=== PATIENT | female | born 2000 | race Caucasian/White ===

== ENCOUNTER 2021-01-10 22:13 | Inpatient (IN) | payer OTHER ==
[~2021-01-10] VITALS: Ht 160 cm; Wt 58.1 kg
[2021-01-10 23:12] LABS: MICROSCOPIC INDICATED
[2021-01-10 23:19] LABS: BASOPHILS % (AUTO) 1 % (0-1); EOSINOPHILS % (AUTO) 0 % (1-7); LYMPHOCYTES % (AUTO) 13 % (22-44); MEAN CORPUSCULAR HEMOGLOBIN 31.5 pg (27.0-34.8); MEAN CORPUSCULAR HGB CONC 34.3 g/dL (32.4-35.8); MEAN PLATELET VOLUME 8.3 fL (7.4-10.4); MONOCYTES % (AUTO) 6 % (2-9); NEUTROPHILS % (AUTO) 79 % (42-75); PLATELET COUNT 319 x10^3/uL (130-400); RED BLOOD COUNT 4.25 x10^6/uL (3.82-5.3)
[2021-01-10 23:28] LABS: ALBUMIN 3.5 g/dL (3.4-5.0); ANION GAP 7 mmol/L (5-15); CALCIUM 8.8 mg/dL (8.5-10.1); CHLORIDE 110 mmol/L (98-107); CREATININE 0.65 mg/dL (0.55-1.02)
--- NOTE | 2021-01-10 23:37 | NUR ---
PT AMBULATED STEADY FROM LOBBY TO ROOM
[2021-01-11] MEDS ORDERED: MORPHINE SULFATE 4 MG/ML, 1ML ONE (00:12)
[2021-01-11] MEDS ORDERED: KETOROLAC 30 MG/1 ML ONE ×2 (00:12→10:51)
[2021-01-11] MEDS ORDERED: ONDANSETRON 2MG/ML, 2ML ONE ×2 (00:12→11:18)
[2021-01-11] MEDS ORDERED: KETOROLAC 30 MG/1 ML IVPush ONE (00:30)
[2021-01-11] MEDS ORDERED: ONDANSETRON 2MG/ML, 2ML IVPush ONE (00:30)
[2021-01-11] MEDS ORDERED: MORPHINE SULFATE 4 MG/ML, 1ML IVPush PRN (00:30)
--- NOTE | 2021-01-11 01:32 | NUR ---
REPORT GIVEN TO MYRA TOURE. HOSP AT BEDSIDE
[2021-01-11] MEDS ORDERED: VENL75TA PO (01:35)
[2021-01-11 01:55] VITALS: BP 98/61
[2021-01-11] MEDS ORDERED: PROM25TA10 PO (01:55)
[2021-01-11] MEDS ORDERED: LACTATED RINGERS 1,000 ML IV SCH (02:00)
[2021-01-11] MEDS ORDERED: OXYcodone IR 5MG TABLET PO PRN (02:00)
[2021-01-11] MEDS ORDERED: MELATONIN 5 MG TABLET PO PRN (02:00)
[2021-01-11] MEDS ORDERED: LABETALOL 5MG/ML, 20ML IVPush PRN (02:00)
[2021-01-11] MEDS ORDERED: LORazepam 2 MG/ML, 1ML IVPush PRN (02:00)
[2021-01-11] MEDS ORDERED: POLYETHYLENE GLYCOL 17 GM PACKET PO PRN (02:00)
[2021-01-11] MEDS ORDERED: POTASSIUM CHLORIDE 20 MEQ TAB.ER.PRT PO ONE (02:00)
[2021-01-11] MEDS ORDERED: morphine SULFATE 10 MG/ML, 1ML IVPush PRN (02:00)
[2021-01-11] MEDS: KETOROLAC 30 MG/1 ML IV SCH ×4 (02:40→15:11)
[2021-01-11] MEDS: ACETAMINOPHEN 500 MG TABLET PO SCH ×4 (02:40→15:10)
[2021-01-11] MEDS: ONDANSETRON 2MG/ML, 2ML IVPush PRN ×2 (05:55→15:51)
[2021-01-11 06:31] LABS: BASOPHILS % (AUTO) 1 % (0-1); EOSINOPHILS % (AUTO) 1 % (1-7); LYMPHOCYTES % (AUTO) 28 % (22-44); MEAN CORPUSCULAR HEMOGLOBIN 31.2 pg (27.0-34.8); MEAN CORPUSCULAR HGB CONC 33.7 g/dL (32.4-35.8); MEAN PLATELET VOLUME 8.5 fL (7.4-10.4); MONOCYTES % (AUTO) 8 % (2-9); NEUTROPHILS % (AUTO) 62 % (42-75); PLATELET COUNT 262 x10^3/uL (130-400); RED BLOOD COUNT 3.83 x10^6/uL (3.82-5.3); RED CELL DISTRIBUTION WIDTH 12.6 % (9.6-15.2)
[2021-01-11 06:48] LABS: CHLORIDE 111 mmol/L (98-107)
[2021-01-11 07:01] LABS: ANION GAP 7 mmol/L (5-15); CALCIUM 8.6 mg/dL (8.5-10.1); CREATININE 0.46 mg/dL (0.55-1.02)
[2021-01-11 07:39] VITALS: BP 93/60
[2021-01-11] MEDS ORDERED: FAMOTIDINE 20 MG/2 ML IVPush SCH (09:00)
[2021-01-11] MEDS ORDERED: FENTANYL PF 250 MCG/5ML ONE (09:18)
[2021-01-11] MEDS ORDERED: MIDAZOLAM 1 MG/ML, 2ML ONE (09:18)
[2021-01-11] MEDS ORDERED: LABETALOL 5MG/ML, 20ML IV PRN (09:30)
[2021-01-11] MEDS ORDERED: DIPHENHYDRAMINE 50 MG/ML, 1ML IVPush PRN (09:30)
[2021-01-11] MEDS ORDERED: HALOPERIDOL 5 MG/ML IV PRN (09:30)
[2021-01-11] MEDS ORDERED: OXYcodone 5 MG/5 ML ORAL.SOL UDC PO PRN (09:30)
[2021-01-11] MEDS ORDERED: MEPERIDINE/PF 25MG/0.5ML IVPush PRN (09:30)
[2021-01-11] MEDS ORDERED: PROMETHAZINE 25 MG/ML, 1ML IVPush PRN (09:30)
[2021-01-11] MEDS ORDERED: HYDROmorphone 1 MG/ML, 1ML INJ IVPush PRN (09:30)
[2021-01-11] MEDS ORDERED: FENTANYL PF 100 MCG/2ML IV PRN (09:30)
[2021-01-11] MEDS ORDERED: hydrALAzine 20 MG/ML, 1ML IV PRN (09:30)
[2021-01-11] MEDS ORDERED: OMNIPAQUE 180 MG/ML, 20ML VIAL ONE (11:10)
[2021-01-11] MEDS ORDERED: NEOSTIGMINE 1 MG/ML, 10ML ONE (11:18)
[2021-01-11] MEDS ORDERED: SUCCINYLCHOLINE 20 MG/ML, 10ML ONE (11:18)
[2021-01-11] MEDS ORDERED: DEXAMETHASONE 4 MG/ML, 1ML ONE (11:18)
[2021-01-11] MEDS ORDERED: ROCURONIUM 10MG/ML,5ML ONE (11:18)
[2021-01-11] MEDS ORDERED: CEFAZOLIN 1,000 MG ONE (11:18)
[2021-01-11] MEDS ORDERED: PROPOFOL 10 MG/ML, 20ML ONE (11:18)
[2021-01-11] MEDS ORDERED: GLYCOPYRROLATE 0.2MG/1ML, 5ML ONE (11:18)
[2021-01-11] MEDS ORDERED: OXYcodone 5 MG/5 ML ORAL.SOL UDC ONE (11:23)
[2021-01-11] MEDS ORDERED: DIAZEPAM 5 MG/ML, 2ML ONE (11:23)
[2021-01-11] MEDS ORDERED: FENTANYL PF 100 MCG/2ML ONE (11:23)
[2021-01-11] MEDS ORDERED: PROMETHAZINE 25 MG/ML, 1ML ONE (11:48)
[2021-01-11 12:25] VITALS: BP 97/63
[2021-01-11] MEDS ORDERED: LORazepam 1MG TABLET PO ONE (17:30)
== END 2021-01-11 19:29 | disposition home or self-care (01) | DRG 659 ==
LOC: ED 01-11 01:24 → EDIP 01-11 01:46 → 3N 01-11 02:26
PROVIDERS: ADMIT Internal Medicine; ATTEND Hospitalist
PROC: 0TC78ZZ Extirpation of Matter from Left Ureter, Via Natural or Artificial Opening Endoscopic (ICD-10-PCS; 2021-01-11)
PROC: 0T778DZ Dilation of Left Ureter with Intraluminal Device, Via Natural or Artificial Opening Endoscopic (ICD-10-PCS; principal; 2021-01-11 08:30)
DX: N13.2 Hydronephrosis with renal and ureteral calculous obstruction (principal); U07.1 COVID-19; F31.9 Bipolar disorder, unspecified; K21.9 Gastro-esophageal reflux disease without esophagitis; F41.1 Generalized anxiety disorder; F60.3 Borderline personality disorder; Z66 Do not resuscitate; Z51.5 Encounter for palliative care
CPT/HCPCS: 36415; 76000; 76770; 80048; 81001; 82040; 82360; 84703; 85025; 87086; 87147; 87635; 88300; 96374; 96375; C1726; G0378; J0690; J1100; J1885; J2250; J2405; J2550; J2704; J2710; J3010; Q9965; C1758; C1769; C2617; J0330; J2060; J2270; J7120

== ENCOUNTER 2021-01-14 10:28 | Emergency (ER) | payer OTHER ==
[~2021-01-14] VITALS: Ht 160 cm; Wt 59.4 kg
[~2021-01-14 10:28] MED LIST: PROM25TA10 PO; VENL75TA PO
--- NOTE | 2021-01-14 11:01 | NUR ---
REPORT TO MYRA MAXWELL.
[2021-01-14] MEDS ORDERED: SODIUM CHLORIDE FLUSH 10ML SYR IVF ONE (12:00)
[2021-01-14] MEDS ORDERED: KETOROLAC 30 MG/1 ML IVPush ONE (12:00)
[2021-01-14] MEDS ORDERED: MORPHINE SULFATE 4 MG/ML, 1ML IVPush PRN (12:00)
[2021-01-14] MEDS ORDERED: SODIUM CHLORIDE 0.9% 1,000ML IVBOLUS ONE (12:00)
[2021-01-14] MEDS ORDERED: ONDANSETRON 2MG/ML, 2ML IVPush ONE (12:00)
--- NOTE | 2021-01-14 12:00 | NUR ---
CC UA COLLECTED-SENT TO LAB PIV PLACED-MEDICATED PER EMAR UPDATED ON ESTIMATED POC
[2021-01-14] MEDS ORDERED: ONDANSETRON 2MG/ML, 2ML ONE (12:05)
[2021-01-14] MEDS ORDERED: KETOROLAC 30 MG/1 ML ONE (12:05)
[2021-01-14] MEDS ORDERED: MORPHINE SULFATE 4 MG/ML, 1ML ONE (12:05)
[2021-01-14 12:12] LABS: BASOPHILS % (AUTO) 1 % (0-1); EOSINOPHILS % (AUTO) 1 % (1-7); LYMPHOCYTES % (AUTO) 15 % (22-44); MEAN CORPUSCULAR HEMOGLOBIN 31.2 pg (27.0-34.8); MEAN CORPUSCULAR HGB CONC 33.8 g/dL (32.4-35.8); MEAN PLATELET VOLUME 8.1 fL (7.4-10.4); MONOCYTES % (AUTO) 5 % (2-9); NEUTROPHILS % (AUTO) 78 % (42-75); PLATELET COUNT 352 x10^3/uL (130-400); RED BLOOD COUNT 4.36 x10^6/uL (3.82-5.3); RED CELL DISTRIBUTION WIDTH 13.1 % (9.6-15.2)
[2021-01-14 12:31] LABS: CHLORIDE 108 mmol/L (98-107)
[2021-01-14 12:32] LABS: ALANINE AMINOTRANSFERASE 24 U/L (12-78); ALBUMIN 3.7 g/dL (3.4-5.0); ALKALINE PHOSPHATASE 92 U/L (45-117); ANION GAP 6 mmol/L (5-15); BILIRUBIN,TOTAL 0.2 mg/dL (0.2-1.0); CALCIUM 9.1 mg/dL (8.5-10.1); CREATININE 0.66 mg/dL (0.55-1.02); TOTAL PROTEIN 7.6 g/dL (6.4-8.2)
[2021-01-14 12:38] LABS: MICROSCOPIC AUTO
--- NOTE | 2021-01-14 15:00 | NUR ---
DR. MARQUES REMOVED PATIENT URETHRAL STENT (PER UROLOGY). PATIENT TOLERATED WELL
[2021-01-14 15:26] VITALS: BP 137/90
== END 2021-01-14 15:28 | disposition home or self-care (01) ==
LOC: ED 11:48
DX: R10.9 Unspecified abdominal pain (principal); R11.2 Nausea with vomiting, unspecified; R19.7 Diarrhea, unspecified; F17.200 Nicotine dependence, unspecified, uncomplicated
CPT/HCPCS: 36415; 80053; 81001; 84703; 85025; 87077; 87086; 96374; 96375; 99284; J1885; J2270; J2405; J7030